=== PATIENT | male | born 1970 | race Two or more races ===

== ENCOUNTER 2020-04-12 17:14 | Emergency (ER) | payer OTHER ==
[~2020-04-12] VITALS: Ht 177.8 cm; Wt 60.8 kg
--- NOTE | 2020-04-12 17:35 | NUR ---
SEEN AND EXMAINED BY MALCOM MARQUEZ
[2020-04-12] MEDS ORDERED: HYDROCODONE/APAP 5/325MG 1 EACH TABLET ONE (17:48)
[2020-04-12 17:54] VITALS: BP 151/101
[2020-04-12] MEDS ORDERED: HYDROCODONE/APAP 5/325MG 1 EACH TABLET PO ONE (18:00)
--- NOTE | 2020-04-12 19:00 | NUR ---
Patient given written and verbal discharge instructions. Patient verbalizes understanding of instructions. Patient is ambulatory with steady gait. Refuses offer of longterm placement. Patient given list of available shelters in surrounding area.
== END 2020-04-12 19:11 | disposition home or self-care (01) ==
LOC: ER 17:22
DX: S63.591A Other specified sprain of right wrist, initial encounter (principal); G40.909 Epilepsy, unspecified, not intractable, without status epilepticus; W01.0XXA Fall on same level from slipping, tripping and stumbling without subsequent striking against object, initial encounter; Y93.K1 Activity, walking an animal; Y92.89 Other specified places as the place of occurrence of the external cause; Y99.8 Other external cause status
CPT/HCPCS: 73110